=== PATIENT | female | born 1980 | race Caucasian/White ===

== ENCOUNTER 2021-11-17 13:45 | Emergency (ER) | payer OTHER ==
[~2021-11-17] VITALS: Ht 165.1 cm; Wt 79.4 kg
[2021-11-17 13:50] VITALS: BP 125/91
--- NOTE | 2021-11-17 14:40 | NUR ---
41 Y/O F C/O L ARM, WRIST PAIN 8/10 FOR 4 DAYS. PER PT THE PAIN RADIATES TO HER L SHOULDER AND JAW. NKA PMH: 6 MONTHS POST , PSORIASIS
--- NOTE | 2021-11-17 15:26 | NUR ---
JASON TAMEZ AT BEDSIDE.
[2021-11-17] MEDS ORDERED: KETOROLAC 30 MG/ML VIAL IM ONE (15:35)
[2021-11-17] MEDS ORDERED: IBUP-2213 PO (16:32)
[2021-11-17] MEDS ORDERED: CYCL-711 PO (16:32)
--- NOTE | 2021-11-17 17:00 | NUR ---
APPLIED CASI WRAP
--- NOTE | 2021-11-17 17:00 | NUR ---
Patient discharged with v/s stable. Written and verbal after care instructions given about tendinitis and De Quevains Tenosyovitis and explained. Patient alert, oriented and verbalized understanding of instructions. Ambulatory with steady gait. All questions addressed prior to discharge. ID band removed. Patient advised to follow up with PMD. Rx of Cyclobenzaprine HCl and Ibuprofen given. Opportunity to ask questions provided and answered.
[2021-11-17 17:06] VITALS: BP 124/78
--- NOTE | 2021-11-17 17:12 | NUR ---
Chart checked and completed. The patient's care was reviewed and supervised by Sayra Edward, RN, RN.
== END 2021-11-17 17:06 | disposition home or self-care (01) ==
LOC: MED 13:45
DX: M25.532 Pain in left wrist (principal); R03.0 Elevated blood-pressure reading, without diagnosis of hypertension; Z79.899 Other long term (current) drug therapy
CPT/HCPCS: 93005; 96372; 99283; J1885

== ENCOUNTER 2022-04-07 11:02 | Emergency (ER) | payer OTHER ==
[~2022-04-07] VITALS: Ht 165.1 cm; Wt 84.6 kg
[~2022-04-07 11:02] MED LIST: CYCL-711 PO; IBUP-2213 PO
[2022-04-07 11:15] VITALS: BP 153/96
--- NOTE | 2022-04-07 11:20 | NUR ---
PT AMB TO BED2.
--- NOTE | 2022-04-07 11:52 | NUR ---
PATIENT IN GOWN. URINE OBTAINED AND SENT
--- NOTE | 2022-04-07 12:56 | NUR ---
Naida ayala in [facility] - 04/07/22 at 1257 by MNURHELLEN FOOD PROVIDED TO PATIENT .
--- NOTE | 2022-04-07 12:57 | NUR ---
PATIENT SLEEPING. RESP EVEN AND UNLABORED
--- NOTE | 2022-04-07 13:04 | NUR ---
YRN MARADIAGA AT BEDSIDE.
--- NOTE | 2022-04-07 13:05 | NUR ---
Chart checked and completed. The patient's care was reviewed and supervised by Mariah Moreno RN.
[2022-04-07 13:25] VITALS: BP 141/83
== END 2022-04-07 13:25 | disposition home or self-care (01) ==
LOC: MED 11:02
DX: N93.9 Abnormal uterine and vaginal bleeding, unspecified (principal); Z79.899 Other long term (current) drug therapy; Z98.890 Other specified postprocedural states
CPT/HCPCS: 81002; 81025; 99282

== ENCOUNTER 2022-07-05 04:25 | Emergency (ER) | payer OTHER ==
[~2022-07-05] VITALS: Ht 165.1 cm; Wt 79.4 kg
[2022-07-05 04:30] VITALS: BP 144/98
[2022-07-05] MEDS ORDERED: KETOROLAC 30 MG/ML VIAL IM ONE (04:45)
[2022-07-05] MEDS ORDERED: MORPHINE SULFATE 4 MG/ML SYR IVP ONE (04:55)
[2022-07-05] MEDS ORDERED: NACL 0.9% 1,000 ML IV ONE (04:55)
[2022-07-05] MEDS ORDERED: NAPR-1704 PO (07:24)
[2022-07-05 07:25] VITALS: BP 122/74
== END 2022-07-05 07:25 | disposition home or self-care (01) ==
LOC: MED 04:25
DX: R10.9 Unspecified abdominal pain (principal); M54.50 Low back pain, unspecified; Z79.899 Other long term (current) drug therapy
CPT/HCPCS: 72100; 74176; 81002; 81025; 96361; 96372; 96374; 99284; J1885; J2270; 99285